=== PATIENT | female | born 1965 | race Hispanic/Latino ===

== ENCOUNTER 2016-12-01 10:23 | Emergency (ER) | payer MEDICAID, OTHER ==
[2016-12-01 10:25] VITALS: BMI 21.2
[2016-12-01 10:55] VITALS: RESP 18; TEMP 98.2; O2SAT 98
--- NOTE | 2016-12-01 11:11 | ED PDOC ---
Addendum entered and electronically signed by Hector Lott PA-C 12/03/16 16:25 : Addendum Addendum: 12/03/16 16:22 Patient stated she is feeling well, and denies urinary symptoms. After reviewing urine culture with patient, she requested to have antibiotic, and medication for yeast infection. I called [facility] on [address] [place] [id number] in [place], [place]. I gave pharmacist verbal order for Keflex 500 mg cap, take 1 cap bid x 5 days. #10 caps, and Diflucan 150 mg tab, take i tab po x once PRN for vaginal itching. #1 tab Patient agreed to pick up attendant medication later today, and she will f/u her pmd in 1- 2 days. Original Note: Arrival/HPI - General Chief Complaint: High Blood Pressure Time Seen by Provider: 12/01/16 11:01 Historian: Patient - History of Present Illness Narrative History of Present Illness (Text): 12/01/16 11:08 51yr old female presents today with concerns for HTN. pt states she has been having on and off headaches for a long time. pt states she developed a nose bleed over a week ago.patient states she is having her blood pressure checked at [facility] and it was elevated so she came into the emergency room for evaluation. Patient states she's been under a lot of stress lately and she's been feeling very anxious. Patient states she is recently going through a divorce and a recent move. She denies chest pain or shortness of breath. Denies fevers or chills. Denies dizziness or weakness. Denies blurred vision. Time/Duration: Prior to Arrival Symptom Onset: Gradual Symptom Course: Resolved Past Medical History - Provider Review Nursing Documentation Reviewed: Yes - Travel History Have you recently traveled outside [place] w/in the past 3 mons?: No - Infectious Disease Hx of Infectious Diseases: None - Tetanus Immunization Tetanus Immunization: Unknown - Reproductive Menopause: No - Past Medical History Past Medical History: No Previous - Gastrointestinal Hx Gastrointestinal Disorders: No - Genitourinary/Gynecological Hx Genitourinary Disorders: No - Psychiatric Hx Psychophysiologic Disorder: No Hx Substance Use: No - Past Surgical History Past Surgical History: Non-Contributing - Surgical History Other/Comment: spinal effusion surgery. - Anesthesia Hx Anesthesia: No Hx Anesthesia Reactions: No Hx Malignant Hyperthermia: No - Suicidal Assessment Feels Threatened In Home Enviroment: No Family/Social History - Physician Review Nursing Documentation Reviewed: Yes Family/Social History: Unknown Family HX Smoking Status: Current Some Days Smoker Hx Alcohol Use: Yes Frequency of alcohol use: Socially Hx Substance Use: No Hx Substance Use Treatment: No Allergies/Home Meds Allergies/Adverse Reactions: Allergies No Known Allergies Allergy (Verified 12/01/16 10:55) Review of Systems - Review of Systems Constitutional: absent: Fatigue, Fevers Eyes: absent: Vision Changes, Photophobia, Eye Pain ENT: Epistaxis (1 week ago) Respiratory: absent: SOB, Cough Cardiovascular: absent: Chest Pain, Palpitations Gastrointestinal: absent: Abdominal Pain, Nausea, Vomiting Genitourinary Female: absent: Dysuria Musculoskeletal: absent: Arthralgias Skin: absent: Rash, Pruritis Neurological: Headache (intermittent for "months"). absent: Dizziness, Focal Weakness, Gait Changes, Speech Changes, Facial Droop, Disequilibrium Psychiatric: Anxiety. absent: Depression, Suicidal Ideation Physical Exam Vital Signs Reviewed: Yes Vital Signs Temp Pulse Resp BP Pulse Ox 12/01/16 11:53 69 18 147/92 H 98 12/01/16 11:08 72 18 155/95 H 98 12/01/16 10:50 98.2 F 72 18 153/119 H 98 Temperature: Afebrile Blood Pressure: Hypertensive Pulse: Regular Respiratory Rate: Normal Appearance: Positive for: Well-Appearing, Non-Toxic, Comfortable Pain Distress: None Mental Status: Positive for: Alert and Oriented X 3 - Systems Exam Head: Present: Atraumatic Pupils: Present: PERRL Extroacular Muscles: Present: EOMI Conjunctiva: Present: Normal Mouth: Present: Moist Mucous Membranes Neck: Present: Normal Range of Motion, Trachea Midline. No: Meningeal Signs Respiratory/Chest: Present: Clear to Auscultation, Good Air Exchange. No: Respiratory Distress, Accessory Muscle Use Cardiovascular: Present: Regular Rate and Rhythm, Normal S1, S2. No: Murmurs Abdomen: No: Tenderness Neurological: Present: GCS=15, Speech Normal, Motor Func Grossly Intact Skin: Present: Warm, Dry, Normal Color. No: Rashes Psychiatric: Present: Alert, Oriented x 3 Medical Decision Making ED Course and Treatment: 12/01/16 11:25 pt is non toxic well appearing; no distress. elevated BP. denies any complaints at present time. pt with new htn findings at [facility]. with slightly elevated bp in er. with intermittent headaches for months. will check labs and ct head to r/o mass. 12/01/16 11:26 cbc wnl cmp wnl UA trace leukocytes, + epithelials contaminated sample - ekg; normal sinus rhythm at 66 normal axis normal intervals no ST elevations ct head; FINDINGS: HEMORRHAGE: No intracranial hemorrhage. BRAIN: No mass effect or edema. No atrophy or chronic microvascular ischemic changes. VENTRICLES: Unremarkable. No hydrocephalus. CALVARIUM: Unremarkable. PARANASAL SINUSES: Unremarkable as visualized. No significant inflammatory changes. MASTOID AIR CELLS: Unremarkable as visualized. No inflammatory changes. OTHER FINDINGS: None. IMPRESSION: No acute findings cxr; wnl no infiltrate/effusions. no cardiomegaly 12/01/16 11:29 Repeat BP; 155/[address] vargas; discussed bp readings; he advised 10mg lisinopril in er. and re-evaluate BP while labs and CT are pending. he also suggested xanax if patient has anxiety. pt refused blood pressure medication; pt would rather take anxiety medication and f/u with dr. sargent before starting medications as she does not want to take any medications daily at this time. advised patient of risks of HTN and concern for possible need for intermediate HTN medications; pt again would like to f/u with dr. vargas before starting any medications for HTN. xanax ordered PO. 12/01/16 12:24 pt was seen by dr. vargas at bedside; will hold off on blood pressure medications at this time. pt will get a bp machine and monitor BP at home and f/ u with him in the office. Results were discussed in depth with the patient. Patient was advised to monitor her blood pressures and follow-up with Dr. Vargas impression; HTN, headaches follow up with the primary care physician within the next 2 days follow up with the charge account clerk within the next 2 days return immediately if symptoms worsen,persist or if new symptoms develop. - Lab Interpretations Lab Results: 12/01/16 11:30 12/01/16 11:30 Lab Results 12/01/16 11:30: Urine Color Yellow, Urine Appearance Sl cloudy, Urine pH 6.5, Ur Specific [place] 1.010, Urine Protein Negative, Urine Glucose (UA) Negative, Urine Ketones Negative, Urine Blood Trace-intact H, Urine Nitrate Negative, Urine Bilirubin Negative, Urine Urobilinogen 0.2, Ur Leukocyte Esterase Small H , Urine RBC 0 - 2, Urine WBC 2 - 5, Ur Epithelial Cells 6 - 8, Urine Bacteria Few 12/01/16 11:30: WBC 8.9, RBC 4.28, Hgb 12.9, Hct 37.7, MCV 88.1, MCH 30.1, MCHC 34.2, RDW 13.3, Plt Count 244, MPV 8.9, Gran % 71.3 H, Lymph % (Auto) 20.8 L, [place] % (Auto) 6.4 H, Eos % (Auto) 0.8 L, Baso % (Auto) 0.7, Gran # 6.37, Lymph # 1.9, [place] # 0.6, Eos # 0.1, Baso # 0.06 12/01/16 11:30: Sodium 142, Potassium 3.8, Chloride 106, Carbon Dioxide 26, Anion Gap 14, BUN 15, Creatinine 0.7, Est GFR ( Amer) > 60, Est GFR (Non- Af Amer) > 60, Random Glucose 90, Calcium 9.1, Total Bilirubin 0.7, AST 33, ALT 37, Alkaline Phosphatase 69, Total Protein 7.3, Albumin 4.3, Globulin 3.0, Albumin/Globulin Ratio 1.4 - RAD Interpretation Radiology Orders: 12/01/16 11:02 HEAD W/O CONTRAST [CT] Stat CHEST ONE VIEW [RAD] Stat - Medication Orders Current Medication Orders: Discontinued Medications Alprazolam (Xanax) 0.25 mg PO STAT STA PRN Reason: Protocol Stop: 12/01/16 11:30 Last Admin: 12/01/16 12:08 Dose: 0.25 mg Lisinopril (Zestril) 10 mg PO STAT STA Stop: 12/01/16 11:29 Disposition/Present on Arrival - Present on Arrival Any Indicators Present on Arrival: No History of DVT/PE: No History of Uncontrolled Diabetes: No Urinary Catheter: No History of Decub. Ulcer: No History Surgical Site Infection Following: None - Disposition Have Diagnosis and Disposition been Completed?: Yes Diagnosis: Hypertension, Frequent headaches Disposition: HOME/ ROUTINE Disposition Time: 12:28 Patient Plan: Discharge Condition: GOOD Discharge Instructions (ExitCare): Hypertension (ED) Additional Instructions: xanax; 1 tablet every 8 hours as needed for anxiety. may cause drowsiness. follow up with the primary care physician within the next 2 days follow up with the charge account clerk within the next 2 days return immediately if symptoms worsen,persist or if new symptoms develop. Prescriptions: ALPRAZolam [Xanax] 0.25 mg PO Q8H PRN #6 tab PRN Reason: Anxiety Referrals: Eric Diehl MD [Staff Provider] - Follow up with primary Matt Vargas MD [Staff Provider] - Follow up with primary Forms: [facility] ([place]), WORK NOTE
[2016-12-01 11:38] LABS: BASO # 0.06 K/mm3 (0.0-2.0); BASO % 0.7 % (0.0-3.0); EOS # 0.1 (0.0-0.7); EOS % 0.8 % (1.5-5.0); GRAN # 6.37 (1.4-6.5); GRAN % 71.3 % (50.0-68.0); HEMATOCRIT 37.7 % (36.0-48.0); LYMPH # 1.9 (1.2-3.4); LYMPH % 20.8 % (22.0-35.0); MEAN CELL VOLUME 88.1 fl (80.0-105.0); MEAN CORPUSCULAR HEMOGLOBIN 30.1 pg (25.0-35.0); MEAN CORPUSCULAR HGB CONC 34.2 g/dl (31.0-37.0); MEAN PLATELET VOLUME 8.9 fl (7.0-11.0); MONO # 0.6 (0.1-0.6); MONO % 6.4 % (1.0-6.0); PH,URINE 6.5 (4.7-8.0); RED CELL DISTRIBUTION WIDTH 13.3 % (11.5-14.5); URINE BILIRUBIN NEGATIVE (NEGATIVE); URINE BLOOD TRACE-INTACT (NEGATIVE); URINE GLUCOSE (UA) NEGATIVE (NEGATIVE); URINE KETONE NEGATIVE (NEGATIVE); URINE LEUKOCYTE ESTERASE SMALL Leu/uL (NEGATIVE); URINE PROTEIN NEGATIVE mg/dL (<30 mg/dL); URINE UROBILINOGEN 0.2 E.U./dL (<1 E.U./dL); WHITE BLOOD COUNT 8.9 10^3/ul (4.5-11.0)
[2016-12-01 11:40] LABS: URINE APPEARANCE SL CLOUDY (CLEAR); URINE COLOR YELLOW (YELLOW)
[2016-12-01 11:45] LABS: URINE BACTERIA FEW (NEG); URINE RBC 0 - 2 /hpf (0-2)
[2016-12-01 11:49] LABS: ALB/GLOB RATIO 1.4 (1.1-1.8); ALKALINE PHOSPHATASE 69 U/L (38-133); ALT/SGPT 37 U/L (7-56); AST/SGOT 33 U/L (15-39); BILIRUBIN,TOTAL 0.7 mg/dL (0.2-1.3); BLOOD UREA NITROGEN 15 mg/dL (7-21); CALCIUM 9.1 mg/dL (8.4-10.5); CARBON DIOXIDE 26 mmol/L (21-33); CHLORIDE 106 mmol/L (98-107); GFR AFRICAN-AMERICAN > 60; GLUCOSE,RANDOM 90 mg/dL (70-110); POTASSIUM 3.8 mmol/L (3.6-5.0); SODIUM 142 mmol/L (132-148); TOTAL PROTEIN 7.3 g/dL (5.8-8.3)
--- NOTE | 2016-12-01 11:56 | CT ---
PROCEDURE: CT HEAD WITHOUT CONTRAST. HISTORY: headaches/htn COMPARISON: None available. TECHNIQUE: Axial computed tomography images were obtained through the head/brain without intravenous contrast. Radiation dose: Total exam DLP = 802 mGy-cm. This CT exam was performed using one or more of the following dose reduction techniques: Automated exposure control, adjustment of the mA and/or kV according to patient size, and/or use of iterative reconstruction technique. FINDINGS: HEMORRHAGE: No intracranial hemorrhage. BRAIN: No mass effect or edema. No atrophy or chronic microvascular ischemic changes. VENTRICLES: Unremarkable. No hydrocephalus. CALVARIUM: Unremarkable. PARANASAL SINUSES: Unremarkable as visualized. No significant inflammatory changes. MASTOID AIR CELLS: Unremarkable as visualized. No inflammatory changes. OTHER FINDINGS: None. IMPRESSION: No acute findings
--- NOTE | 2016-12-01 12:14 | RAD ---
PROCEDURE: CHEST RADIOGRAPH, 1 VIEW HISTORY: htn COMPARISON: None available. FINDINGS: LUNGS: Clear. PLEURA: No pneumothorax or pleural fluid seen. CARDIOVASCULAR: Normal. OSSEOUS STRUCTURES: No significant abnormalities. VISUALIZED UPPER ABDOMEN: Normal. OTHER FINDINGS: None. IMPRESSION: No active disease.
[2016-12-01 12:42] VITALS: BP 141/96; PULSE 65
--- NOTE | 2016-12-01 12:55 | CARD ---
APPROVED REPORT EKG Measurement Heart [id number] <Conclusion> Normal sinus rhythm Minimal voltage criteria for LVH, may be normal variant Borderline ECG
== END 2016-12-01 12:47 | disposition home or self-care (01) ==
LOC: ED 10:23
DX: I10 Essential (primary) hypertension (principal); R51 Headache; F17.210 Nicotine dependence, cigarettes, uncomplicated